=== PATIENT | male | born 1990 | race American Indian/Alaskan Native ===

== ENCOUNTER 2018-02-01 09:58 | Emergency (ER) | payer SELFPAY ==
[2018-02-01 10:08] VITALS: BP 144/78
[2018-02-01] MEDS ORDERED: NACL 0.9% 1000 ML 1,000 ML IV ONE (10:23)
[2018-02-01] MEDS ORDERED: ZOFRAN ODT PO ONE (10:24)
[2018-02-01] MEDS ORDERED: MORPHINE IV ONE (10:24)
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
[2018-02-01] MEDS ORDERED: BOOSTRIX IM ONE (10:26)
--- NOTE | 2018-02-01 10:28 | XRay Report ---
Single view chest: History: Difficulty breathing. Findings: Normal cardiomediastinal silhouette. Trachea is midline. No consolidation, pneumothorax or pleural effusion. Impression: No acute cardiopulmonary findings.
[2018-02-01 10:30] LABS: Basophils % (Auto) 0.3 % (0.0-1.8); Eosinophils % (Auto) 0.8 % (0.0-4.3); Hematocrit 45.8 % (35.5-45.6); Lymphocytes # (Auto) 1.2 K/mm3 (1.2-5.4); Lymphocytes % (Auto) 19.1 % (13.4-35.0); Mean Corpuscular HGB Conc 35 % (32-34); Mean Corpuscular Hemoglobin 31 pg (28-32); Mean Corpuscular Volume 90 fl (84-94); Monocytes # (Auto) 0.4 K/mm3 (0.0-0.8); Monocytes % (Auto) 5.7 % (0.0-7.3); Platelet Count 195 K/mm3 (140-440); Red Blood Count 5.09 M/mm3 (3.65-5.03); Red Cell Distribution Width 12.9 % (13.2-15.2)
[2018-02-01 10:40] LABS: INR 0.95 (0.87-1.13)
[2018-02-01 10:41] LABS: Partial Thromboplastin Time 27.5 Sec. (24.2-36.6)
[2018-02-01 10:44] LABS: Alanine Aminotransferase 53 units/L (7-56); Albumin 4.4 g/dL (3.9-5); BUN/Creatinine Ratio 13; Blood Urea Nitrogen 13 mg/dL (9-20); Calcium 9.4 mg/dL (8.4-10.2); Hemolysis Index 9
[2018-02-01] MEDS ORDERED: ceFAZolin 1 GM in NACL 0.9% 20 ML IV SCH (11:00)
[2018-02-01] MEDS ORDERED: XYLOCAINE 1% 20 mL ONE (11:33)
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
== END 2018-02-01 14:10 | disposition home or self-care (01) ==
LOC: ED 09:58
DX: S21.219A Laceration without foreign body of unspecified back wall of thorax without penetration into thoracic cavity, initial encounter (principal); S21.239A Puncture wound without foreign body of unspecified back wall of thorax without penetration into thoracic cavity, initial encounter; X99.1XXA Assault by knife, initial encounter; Y93.89 Activity, other specified; Y92.89 Other specified places as the place of occurrence of the external cause; Y99.8 Other external cause status; M54.6 Pain in thoracic spine
CPT/HCPCS: 12001; 36415; 71045; 71260; 80053; 85025; 85610; 85730; 90471; 90715; 96361; 96374; 96375; 99285; J0690; J2270; J7030; Q9967; Q0162

== ENCOUNTER 2018-09-05 13:11 | Emergency (ER) | payer SELFPAY ==
[2018-09-05] MEDS ORDERED: NACL 0.9% 1000 ML 1,000 ML IV ONE (13:26)
[2018-09-05 13:31] VITALS: BP 125/55
--- NOTE | 2018-09-05 16:04 | Emergency Department Report ---
- General Chief Complaint: Upper Respiratory Infection Stated Complaint: LYMPH NODES/CONGESTION Time Seen by Provider: 09/05/18 15:56 Source: patient Mode of arrival: Ambulatory Limitations: No Limitations - History of Present Illness MD Complaint: nasal congestion, sinus pain -: Sudden Severity: mild Severity scale (0 -10): 0 Consistency: constant Improves With: nothing Worsens With: nothing Associated Symptoms: denies other symptoms Treatments Prior to Arrival: none - Related Data Previous Rx's Medication Instructions Recorded Last Taken Type Ibuprofen [Motrin] 800 mg PO Q8HR PRN #20 tablet 02/01/18 Unknown Rx Sulfamethoxazole/Trimethoprim 1 each PO BID #20 tablet 02/01/18 Unknown Rx [Bactrim Ds Tablet] Amoxicillin/Potassium Clav 1 each PO BID #20 tablet 09/05/18 Unknown Rx [Augmentin 875-125 Tablet] Allergies Allergy/AdvReac Type Severity Reaction Status Date / Time No Known Allergies Allergy Unverified 02/01/18 10:08 ED Review of Systems ROS: Stated complaint: LYMPH NODES/CONGESTION Other details as noted in HPI Comment: All other systems reviewed and negative Constitutional: denies: chills, fever Eyes: denies: eye pain, eye discharge, vision change ENT: congestion. denies: ear pain, throat pain Respiratory: denies: cough, shortness of breath, wheezing Cardiovascular: denies: chest pain, palpitations Endocrine: no symptoms reported Gastrointestinal: denies: abdominal pain, nausea, diarrhea Genitourinary: denies: urgency, dysuria Musculoskeletal: denies: back pain, joint swelling, arthralgia Skin: denies: rash, lesions Neurological: denies: headache, weakness, paresthesias Psychiatric: denies: anxiety, depression Hematological/Lymphatic: denies: easy bleeding, easy bruising ED Past Medical Hx - Past Medical History Previous Medical History?: No - Surgical History Past Surgical History?: No - Social History Smoking Status: Current Every Day Smoker Substance Use Type: None - Medications Home Medications: Home Medications Medication Instructions Recorded Confirmed Last Taken Type Ibuprofen [Motrin] 800 mg PO Q8HR PRN #20 tablet 02/01/18 Unknown Rx Sulfamethoxazole/Trimethoprim 1 each PO BID #20 tablet 02/01/18 Unknown Rx [Bactrim Ds Tablet] Amoxicillin/Potassium Clav 1 each PO BID #20 tablet 09/05/18 Unknown Rx [Augmentin 875-125 Tablet] ED Physical Exam - General Limitations: No Limitations General appearance: alert, in no apparent distress - Head Head exam: Present: atraumatic, normocephalic - Eye Eye exam: Present: normal appearance - ENT ENT exam: Present: mucous membranes moist - Neck Neck exam: Present: normal inspection - Respiratory Respiratory exam: Present: normal lung sounds bilaterally. Absent: respiratory distress - Cardiovascular Cardiovascular Exam: Present: regular rate, normal rhythm. Absent: systolic murmur, diastolic murmur, rubs, gallop - GI/Abdominal GI/Abdominal exam: Present: soft, normal bowel sounds - Rectal Rectal exam: Present: deferred - Extremities Exam Extremities exam: Present: normal inspection - Back Exam Back exam: Present: normal inspection - Neurological Exam Neurological exam: Present: alert, oriented X3 - Psychiatric Psychiatric exam: Present: normal affect, normal mood - Skin Skin exam: Present: warm, dry, intact, normal color. Absent: rash ED Course Vital Signs 09/05/18 13:20 Temperature 98.4 F Pulse Rate 85 Respiratory 17 Rate Blood Pressure 125/55 O2 Sat by Pulse 97 Oximetry ED Medical Decision Making - Medical Decision Making Acute Sinusitis. Critical care attestation.: If time is entered above; I have spent that time in minutes in the direct care of this critically ill patient, excluding procedure time. ED Disposition Clinical Impression: Acute sinusitis Qualifiers: Sinusitis location: unspecified location Recurrence: not specified as recurrent Qualified Code(s): J01.90 - Acute sinusitis, unspecified Disposition: - TO HOME OR SELFCARE Is pt being admited?: No Does the pt Need Aspirin: No Condition: Stable Instructions: Sinusitis (ED) Additional Instructions: Please follow up with your regular doctor or Dr Ayala in 1-2 days. Return to the ED if your condition worsens. Prescriptions: Amoxicillin/Potassium Clav [Augmentin 875-125 Tablet] 1 each PO BID #20 tablet Referrals: PRIMARY CARE, [Primary Care Provider] - 3-5 Days Time of Disposition: 16:03
== END 2018-09-05 16:15 | disposition home or self-care (01) ==
LOC: ED 13:11
DX: J01.90 Acute sinusitis, unspecified (principal); F17.200 Nicotine dependence, unspecified, uncomplicated
CPT/HCPCS: 99282

== ENCOUNTER 2021-11-14 19:31 | Emergency (ER) | payer SELFPAY ==
[2021-11-14 20:14] VITALS: BP 141/86
[2021-11-14] MEDS ORDERED: predniSONE 20 MG TAB PO ONE (21:12)
[2021-11-14] MEDS ORDERED: AMOXICILLIN/K CLAV 875/125MG TAB PO ONE (21:12)
--- NOTE | 2021-11-14 21:16 | Emergency Department Report ---
ED ENT HPI - General Chief complaint: Pain General Stated complaint: THROAT PAIN,HEAD PAIN Time Seen by Provider: 11/14/21 20:53 Source: patient Mode of arrival: Ambulatory Limitations: No Limitations - History of Present Illness Initial comments: 31-year-old black male with no past medical history presents to the emergency department for evaluation of over 2-week history of nasal congestion with thick yellow-greenish drainage and malodor, headache, congestion, persistent cough, and intermittent fever. He states that he has been taking gonr-[id number]-[id number] sinus medication without improvement. MD complaint: sore throat -: Gradual, week(s) (To) Severity: moderate Severity scale (0 -10): 7 Quality: aching Consistency: constant Associated Symptoms: fever, cough, sore throat, rhinorrhea. denies: gum swelling, toothache, pain with swallowing, tinnitus, hearing loss, discharge from ear - Related Data Previous Rx's Medication Instructions Recorded Last Taken Type Ibuprofen [Motrin] 800 mg PO Q8HR PRN #20 tablet 02/01/18 Unknown Rx Sulfamethoxazole/Trimethoprim 1 each PO BID #20 tablet 02/01/18 Unknown Rx [Bactrim Ds Tablet] Amoxicillin/Potassium Clav 1 each PO BID #20 tablet 09/05/18 Unknown Rx [Augmentin 875-125 Tablet] Amoxicillin [Trimox CAP] 500 mg PO BID #20 capsule 05/28/19 Unknown Rx Amoxicillin/Potassium Clav 1 each PO BID #14 tab 11/14/21 Unknown Rx [Augmentin 875-125 Tablet] Prednisone [predniSONE 5 mg (6-Day 5 mg PO .TAPER #1 tab 11/14/21 Unknown Rx Pack, 21 Tabs)] Allergies Allergy/AdvReac Type Severity Reaction Status Date / Time blueberry Allergy Unknown Verified 11/14/21 20:17 ED Dental HPI - General Chief complaint: Pain General Stated complaint: THROAT PAIN,HEAD PAIN Time Seen by Provider: 11/14/21 20:53 Source: patient Mode of arrival: Ambulatory Limitations: No Limitations - Related Data Previous Rx's Medication Instructions Recorded Last Taken Type Ibuprofen [Motrin] 800 mg PO Q8HR PRN #20 tablet 02/01/18 Unknown Rx Sulfamethoxazole/Trimethoprim 1 each PO BID #20 tablet 02/01/18 Unknown Rx [Bactrim Ds Tablet] Amoxicillin/Potassium Clav 1 each PO BID #20 tablet 09/05/18 Unknown Rx [Augmentin 875-125 Tablet] Amoxicillin [Trimox CAP] 500 mg PO BID #20 capsule 05/28/19 Unknown Rx Amoxicillin/Potassium Clav 1 each PO BID #14 tab 11/14/21 Unknown Rx [Augmentin 875-125 Tablet] Prednisone [predniSONE 5 mg (6-Day 5 mg PO .TAPER #1 tab 11/14/21 Unknown Rx Pack, 21 Tabs)] Allergies Allergy/AdvReac Type Severity Reaction Status Date / Time blueberry Allergy Unknown Verified 11/14/21 20:17 ED Review of Systems ROS: Stated complaint: THROAT PAIN,HEAD PAIN Other details as noted in HPI Comment: All other systems reviewed and negative Constitutional: fever. denies: chills, diaphoresis, malaise, weakness Eyes: eye pain. denies: eye discharge, vision change ENT: congestion. denies: ear pain, throat pain, dental pain, hearing loss, epistaxis Respiratory: cough. denies: orthopnea, shortness of breath, SOB with exertion, SOB at rest, stridor, wheezing Cardiovascular: denies: chest pain, palpitations, dyspnea on exertion, orthopnea, edema, syncope, paroxysmal nocturnal dyspnea Endocrine: no symptoms reported Gastrointestinal: denies: abdominal pain, nausea, vomiting, diarrhea, constipation, hematemesis, melena, hematochezia Genitourinary: denies: urgency, dysuria, frequency, hematuria, discharge Musculoskeletal: denies: back pain Skin: denies: rash, lesions, change in color, change in hair/nails Neurological: headache. denies: weakness, numbness, paresthesias, confusion, abnormal gait Psychiatric: denies: anxiety, depression Hematological/Lymphatic: denies: easy bleeding, easy bruising ED Past Medical Hx - Past Medical History Previous Medical History?: No - Surgical History Past Surgical History?: No - Social History Smoking Status: Never Smoker Substance Use Type: None - Medications Home Medications: Home Medications Medication Instructions Recorded Confirmed Last Taken Type Ibuprofen [Motrin] 800 mg PO Q8HR PRN #20 tablet 02/01/18 Unknown Rx Sulfamethoxazole/Trimethoprim 1 each PO BID #20 tablet 02/01/18 Unknown Rx [Bactrim Ds Tablet] Amoxicillin/Potassium Clav 1 each PO BID #20 tablet 09/05/18 Unknown Rx [Augmentin 875-125 Tablet] Amoxicillin [Trimox CAP] 500 mg PO BID #20 capsule 05/28/19 Unknown Rx Amoxicillin/Potassium Clav 1 each PO BID #14 tab 11/14/21 Unknown Rx [Augmentin 875-125 Tablet] Prednisone [predniSONE 5 mg (6-Day 5 mg PO .TAPER #1 tab 11/14/21 Unknown Rx Pack, 21 Tabs)] ED Physical Exam - General Limitations: No Limitations - Head Head exam: Present: atraumatic, normocephalic - Eye Eye exam: Present: normal appearance. Absent: scleral icterus, conjunctival injection, periorbital swelling - ENT ENT exam: Present: mucous membranes moist, normal external ear exam. Absent: normal exam (Bilateral mucosal erythema and edema with greenish drainage and malodorous smell noted), normal orophraynx (Erythema to posterior oropharynx) - Expanded ENT Exam Expanded Ear exam: Present: normal external inspection Mouth exam: Present: normal external inspection Throat exam: Negative: tonsillar erythema, tonsillar exudate, R peritonsillar mass, L peritonsillar mass - Neck Neck exam: Present: normal inspection, full ROM. Absent: tenderness, lymphadenopathy - Respiratory Respiratory exam: Present: normal lung sounds bilaterally. Absent: respiratory distress, wheezes, rales, rhonchi, stridor, chest wall tenderness, accessory muscle use - Cardiovascular Cardiovascular Exam: Present: regular rate, normal heart sounds - GI/Abdominal GI/Abdominal exam: Present: soft, normal bowel sounds. Absent: distended, tenderness, guarding, rebound, rigid - Back Exam Back exam: Present: normal inspection. Absent: tenderness, CVA tenderness (R), CVA tenderness (L) - Neurological Exam Neurological exam: Present: alert, oriented X3 - Psychiatric Psychiatric exam: Present: normal affect, normal mood - Skin Skin exam: Present: warm, dry, intact, normal color ED Course Vital Signs 11/14/21 20:12 Temperature 97.8 F Pulse Rate 96 H Respiratory 18 Rate Blood Pressure 141/86 [Left] O2 Sat by Pulse 98 Oximetry ED Medical Decision Making - Medical Decision Making 31-year-old black male with no past medical history presents to the emergency department for evaluation of over 2-week history of nasal congestion with thick yellow-greenish drainage and malodor, headache, congestion, persistent cough, and intermittent fever. He states that he has been taking [id number] sinus medication without improvement. No acute abnormalities noted on exam. Exam consistent with sinusitis, and given the fact that patient has been taking [id number] sinus medication without improvement and has developed greenish-yellow drainage along with mild odorous smell, patient will be treated for acute bacterial rhinosinusitis with a 7-day course of Augmentin along with 6-day prednisone pack. He is advised to take medications as prescribed and follow-up with primary care provider if no improvement or worsening symptoms. He verbalized understanding of and agreement with plan of care. Critical care attestation.: If time is entered above; I have spent that time in minutes in the direct care of this critically ill patient, excluding procedure time. ED Disposition Clinical Impression: Acute bacterial rhinosinusitis Disposition: HOME / SELF CARE / HOMELESS Is pt being admited?: No Does the pt Need Aspirin: No Condition: Stable Instructions: Antibiotic Medicine, Adult, [id number], Sinusitis, Adult, [id number] Additional Instructions: Take medications as prescribed. Follow-up with primary care provider. Prescriptions: Amoxicillin/Potassium Clav [Augmentin 875-125 Tablet] 1 each PO BID #14 tab Prednisone [predniSONE 5 mg (6-Day Pack, 21 Tabs)] 5 mg PO .TAPER #1 tab Referrals: [facility] [Outside] - 3-5 Days [facility] [Outside] - 3-5 Days Time of Disposition: 21:15
== END 2021-11-14 21:58 | disposition home or self-care (01) ==
LOC: ED 19:31
DX: J01.90 Acute sinusitis, unspecified (principal); B96.89 Other specified bacterial agents as the cause of diseases classified elsewhere; Z91.02 Food additives allergy status
CPT/HCPCS: 99282